=== PATIENT | female | born 1945 | race Caucasian/White ===

== ENCOUNTER 2018-04-13 23:26 | Emergency (ER) | payer OTHER ==
[~2018-04-13] VITALS: Ht 157.4 cm; Wt 77.1 kg
--- NOTE | ~2018-04-13 | EKG ---
[place], [place] ELECTROCARDIOGRAM REPORT NAME: CHERIE CHAPMAN UNIT #: [id number] ROOM: DOCTOR: EPIPHBELINDA DRAFT REPORT BIRTHDATE: [birth year] [facility] Test Date: 2018-04-14 Test Time: 00:02:37 Pat Name: CHERIE CHAPMAN Department: Room: Gender: F Manager Education: [place] : 1945 Requested By: COOKIE DICKINSON PA-C Order Number: [id number] Reading MD: Henry Story MD Measurements Intervals [place] Rate: 66 P: [place]: QRS: 42 QRSD: 85 T: 65 QT: 419 QTc: 439 Interpretive Statements Sinus rhythm Low voltage, precordial leads Nonspecific T abnormalities, anterior leads Electronically Signed On 04-14-2018 14:25:10 PST by Henry Story MD CM:EKGRPT:ELECTROCARDIOGRAM REPORT [id number] COOKIE DICKINSON PA-C EPIPHANY DRAFT REPORT COOKIE DICKINSON PA-C
[~2018-04-13 23:26] MED LIST: AUGMENTIN 875 M1 TAB PO; CEFUROXIME AXE250 MG PO; CIPRO250 MG PO; CLARITIN10 MG PO; CRESTOR20 M1 PO; CRESTOR20 MG PO; LISINOPRIL20 MG PO; METOPROLOL SUCC50 M1 PO; MOTRIN800 MG PO; PYRIDIUM200 MG PO; SIMVASTATIN40 MG PO; ULTRAM50 MG PO; ZANTAC 150150 MG PO; ZESTRIL,PRINIVIL5 MG PO
[2018-04-13] MEDS ORDERED: OMEPRAZOLE40 MG PO (23:41)
[2018-04-14 00:07] LABS: BASO % 0.7 % (0.0-1.0); EOS # 0.1 10*3/uL (0.0-0.4); EOS % 1.1 % (1.0-4.0); HEMATOCRIT 35.5 % (37.0-47.0); HEMOGLOBIN 12.2 g/dl (12.0-16.0); LYMPH # 1.9 10*3/uL (1.3-4.4); MEAN CELL VOLUME 92.4 fl (81.0-99.0); MEAN CORPUSCULAR HGB 31.8 pg (27.0-31.0); MEAN CORPUSCULAR HGB CONC 34.4 g/dl (33.0-37.0); MEAN PLATELET VOLUME 9.3 fl (9.6-12.3); MONO # 0.4 10*3/uL (0.1-1.0); MONO % 7.5 % (3.0-9.0); NEUT % 55.3 % (47.0-73.0); PLATELET COUNT AUTOMATED 267 10*3/uL (130-400); RED BLOOD COUNT 3.84 10*6/uL (4.10-5.10); RED CELL DISTRI WIDTH 12.1 % (0-14.5); WHITE BLOOD COUNT 5.3 10*3/uL (4.8-10.8)
[2018-04-14 00:09] LABS: BILIRUBIN NEGATIVE (NEGATIVE); BLOOD 2+ (NEGATIVE); CLARITY SL CLOUDY (CLEAR); COLOR YELLOW (YELLOW); GLUCOSE NEGATIVE (NEGATIVE); KETONE NEGATIVE (NEGATIVE); LEUKO ESTERASE NEGATIVE (NEGATIVE); NITRITE NEGATIVE (NEGATIVE); PH 5.5 (5.0-9.0); SPECIFIC GRAVITY 1.025 (1.005-1.030); UROBILINOGEN 0.2 E.U./dl (0.2-1.0)
[2018-04-14 00:15] LABS: INTERNATIONAL NORM RATIO 0.9 (2.0-3.5)
[2018-04-14 00:21] LABS: BACTERIA 4+
[2018-04-14 00:25] LABS: ALBUMIN 3.4 gm/dl (3.1-4.5); ALKALINE PHOSPHATASE 111 U/L (45-117); BUN 15 mg/dl (7-24); CHLORIDE 104 mmol/L (98-107); CREATININE 1.25 mg/dL (0.55-1.02); POTASSIUM 3.5 mmol/L (3.5-5.1); SGOT/AST 31 IU/L (3-35); SGPT/ALT 29 U/L (12-78); SODIUM 137 mmol/L (136-145); TOTAL PROTEIN 6.5 gm/dL (6.4-8.2); TROPONIN I < 0.015 ng/ml (<0.045)
== END 2018-04-14 01:38 | disposition home or self-care (01) ==
LOC: ED 23:26
PROVIDERS: Physician Assistant
DX: I10 Essential (primary) hypertension (principal); Z91.041 Radiographic dye allergy status; Z79.899 Other long term (current) drug therapy; Z90.710 Acquired absence of both cervix and uterus

== ENCOUNTER → 2020-03-24 | Outpatient (CLI) | payer MEDICARE ==
[~2020-03-24] MED LIST changes: +OMEPRAZOLE40 MG PO
== END | disposition home or self-care (01) ==
LOC: CARD 12:40
PROVIDERS: ATTEND Internal Medicine Cardiovascular Disease
DX: R06.00 Dyspnea, unspecified (principal)

== ENCOUNTER → 2020-09-20 | Outpatient (CLI) | payer MEDICARE | END | disposition home or self-care (01) | LOC: CT 13:42 | PROVIDERS: ATTEND Family Medicine | DX: M27.8 Other specified diseases of jaws (principal); K11.8 Other diseases of salivary glands ==

== ENCOUNTER 2021-10-06 07:02 | Inpatient (IN) | payer MEDICARE ==
[2021-10-06] VITALS (13 sets, daily range): BP systolic 132–195; BP diastolic 53–90
[~2021-10-06] VITALS: Ht 157.5 cm; Wt 62.4 kg
[2021-10-06 07:36] LABS: BASO % 0.6 % (0.0-1.0); EOS % 0.6 % (1.0-4.0); HEMATOCRIT 40.7 % (37.0-47.0); LYMPH # 1.2 10*3/uL (1.3-4.4); LYMPH % 24.1 % (27.0-41.0); MEAN CELL VOLUME 91.1 fl (81.0-99.0); MEAN CORPUSCULAR HGB 31.3 pg (27.0-31.0); MEAN CORPUSCULAR HGB CONC 34.4 g/dl (33.0-37.0); MONO # 0.3 10*3/uL (0.1-1.0); MONO % 5.9 % (3.0-9.0); NEUT # 3.4 10*3/uL (2.3-7.9); NEUT % 68.6 % (47.0-73.0); PLATELET COUNT AUTOMATED 265 10*3/uL (130-400); RED BLOOD COUNT 4.47 10*6/uL (4.10-5.10); RED CELL DISTRI WIDTH 11.9 % (0-14.5); WHITE BLOOD COUNT 4.9 10*3/uL (4.8-10.8)
[2021-10-06 07:47] LABS: ACT PARTIAL THROMBO TIME 27.1 SECONDS (20.0-32.1); INTERNATIONAL NORM RATIO 0.9 (2.0-3.5)
[2021-10-06 07:54] LABS: ALKALINE PHOSPHATASE 114 U/L (45-117); BUN 12 mg/dl (7-24); CHLORIDE 103 mmol/L (98-107); CREATININE 0.95 mg/dL (0.55-1.02); LIPASE 78 U/L (73-393); SGOT/AST 21 IU/L (3-35); SGPT/ALT 20 U/L (12-78); SODIUM 137 mmol/L (136-145)
[2021-10-06] MEDS ORDERED: HYDRALAZINE10 MG PO (11:41)
[2021-10-06] MEDS ORDERED: HYDROCHLOROTH12.5 M2 PO (11:51)
[2021-10-07] VITALS: BP 143/61
[2021-10-07 08:00] VITALS: BP 129/64
[2021-10-07 12:00] VITALS: BP 130/58
[2021-10-07] MEDS ORDERED: ASPIRIN ADULT L81 M2 PO (14:01)
== END 2021-10-07 14:25 | disposition home or self-care (01) | DRG 305 ==
LOC: ED 07:02 → 4E 10:37 → EDHOLD 10:37 → 4E 14:38
PROVIDERS: Emergency Medicine; ADMIT Internal Medicine; ATTEND Internal Medicine
DX: I16.1 Hypertensive emergency (principal); E78.2 Mixed hyperlipidemia; E11.9 Type 2 diabetes mellitus without complications; I07.1 Rheumatic tricuspid insufficiency; Z91.041 Radiographic dye allergy status; Z79.899 Other long term (current) drug therapy; Z90.710 Acquired absence of both cervix and uterus; Z91.14 Patient's other noncompliance with medication regimen

== ENCOUNTER → 2021-11-10 | Outpatient (CLI) | payer MEDICARE ==
[~2021-11-10] MED LIST changes: +ASPIRIN ADULT L81 M2 PO; +HYDRALAZINE10 MG PO; +HYDROCHLOROTH12.5 M2 PO
[2021-11-10 12:53] LABS: ALKALINE PHOSPHATASE 91 U/L (45-117); BUN 13 mg/dl (7-24); CHLORIDE 104 mmol/L (98-107); CHOLESTEROL 172 mg/dL (<200); CPK 33 U/L (26-192); CREATININE 0.87 mg/dL (0.55-1.02); LDL CHOLESTEROL 83 mg/dL (9-159); POTASSIUM 4.2 mmol/L (3.5-5.1); SGOT/AST 20 IU/L (3-35); SGPT/ALT 18 U/L (12-78); SODIUM 137 mmol/L (136-145); TOTAL PROTEIN 6.7 gm/dL (6.4-8.2); TRIGLYCERIDES 161 mg/dl (<150)
== END | disposition home or self-care (01) ==
LOC: LAB 11:51
PROVIDERS: ATTEND Family Medicine
DX: I10 Essential (primary) hypertension (principal); E74.9 Disorder of carbohydrate metabolism, unspecified; E78.00 Pure hypercholesterolemia, unspecified; E55.9 Vitamin D deficiency, unspecified; Z79.899 Other long term (current) drug therapy

== ENCOUNTER → 2022-02-22 | Outpatient (CLI) | payer MEDICARE ==
[2022-02-22 13:29] LABS: MEAN CELL VOLUME 93.5 fl (81.0-99.0); MEAN CORPUSCULAR HGB 31.6 pg (27.0-31.0); MEAN CORPUSCULAR HGB CONC 33.8 g/dl (33.0-37.0); MEAN PLATELET VOLUME 9.1 fl (9.6-12.3); RED BLOOD COUNT 4.49 10*6/uL (4.10-5.10); RED CELL DISTRI WIDTH 11.7 % (0-14.5); WHITE BLOOD COUNT 3.9 10*3/uL (4.8-10.8)
[2022-02-22 14:11] LABS: ALKALINE PHOSPHATASE 107 U/L (45-117); BUN 12 mg/dl (7-24); CHLORIDE 107 mmol/L (98-107); CHOLESTEROL 290 mg/dL (<200); CREATININE 0.89 mg/dL (0.55-1.02); LDL CHOLESTEROL 202 mg/dL (9-159); POTASSIUM 4.6 mmol/L (3.5-5.1); SGOT/AST 16 IU/L (3-35); SGPT/ALT 18 U/L (12-78); SODIUM 139 mmol/L (136-145); TOTAL PROTEIN 6.6 gm/dL (6.4-8.2); TRIGLYCERIDES 129 mg/dl (<150)
== END ==
LOC: LAB 13:12
PROVIDERS: ATTEND Family Medicine
DX: I10 Essential (primary) hypertension (principal); E11.9 Type 2 diabetes mellitus without complications; K21.9 Gastro-esophageal reflux disease without esophagitis

== ENCOUNTER → 2022-08-14 | Outpatient (CLI) | payer MEDICARE ==
[2022-08-14 12:49] LABS: HEMATOCRIT 42.2 % (37.0-47.0); MEAN CELL VOLUME 94.4 fl (81.0-99.0); MEAN CORPUSCULAR HGB 30.6 pg (27.0-31.0); MEAN CORPUSCULAR HGB CONC 32.5 g/dl (33.0-37.0); MEAN PLATELET VOLUME 9.3 fl (9.6-12.3); RED BLOOD COUNT 4.47 10*6/uL (4.10-5.10); RED CELL DISTRI WIDTH 11.9 % (0-14.5)
[2022-08-14 13:07] LABS: ALKALINE PHOSPHATASE 77 U/L (46-116); BUN 11 mg/dl (9-23); CHLORIDE 103 mmol/L (98-107); CHOLESTEROL 162 mg/dL (<200); LDL CHOLESTEROL 75 mg/dL (9-159); POTASSIUM 4.1 mmol/L (3.4-5.1); SGPT/ALT 12 U/L (10-49); TOTAL PROTEIN 6.5 gm/dL (6.0-8.0); TRIGLYCERIDES 175 mg/dl (<150)
[2022-08-14 13:36] LABS: VITAMIN D, 25-HYDROXY 22.4 ng/mL (30-100)
== END | disposition home or self-care (01) ==
LOC: LAB 11:40
PROVIDERS: ATTEND Family Medicine
DX: I10 Essential (primary) hypertension (principal); E11.9 Type 2 diabetes mellitus without complications; E78.00 Pure hypercholesterolemia, unspecified; E55.9 Vitamin D deficiency, unspecified; R53.83 Other fatigue

== ENCOUNTER → 2022-08-21 | Outpatient (CLI) | payer MEDICARE | END | disposition home or self-care (01) | LOC: LAB 10:16 | PROVIDERS: ATTEND Family Medicine | DX: R10.9 Unspecified abdominal pain (principal) ==

== ENCOUNTER → 2022-08-22 | Outpatient (CLI) | payer MEDICARE | END | disposition home or self-care (01) | LOC: CT 02:23 | PROVIDERS: ATTEND Family Medicine | DX: N20.0 Calculus of kidney (principal); K57.32 Diverticulitis of large intestine without perforation or abscess without bleeding; K42.9 Umbilical hernia without obstruction or gangrene; Z90.49 Acquired absence of other specified parts of digestive tract ==

== ENCOUNTER → 2023-03-19 | Outpatient (CLI) | payer MEDICARE ==
[2023-03-19 14:18] LABS: MEAN CELL VOLUME 93.2 fl (81.0-99.0); MEAN CORPUSCULAR HGB 31.4 pg (27.0-31.0); MEAN CORPUSCULAR HGB CONC 33.7 g/dl (33.0-37.0); MEAN PLATELET VOLUME 9.1 fl (9.6-12.3); RED BLOOD COUNT 4.4 10*6/uL (4.10-5.10); RED CELL DISTRI WIDTH 11.9 % (0-14.5); WHITE BLOOD COUNT 4.4 10*3/uL (4.8-10.8)
[2023-03-19 14:46] LABS: ALKALINE PHOSPHATASE 83 U/L (46-116); BUN 9 mg/dl (9-23); CHLORIDE 105 mmol/L (98-107); CHOLESTEROL 238 mg/dL (<200); CPK 35 U/L (34-171); LDL CHOLESTEROL 152 mg/dL (9-159); POTASSIUM 3.8 mmol/L (3.4-5.1); TOTAL PROTEIN 6.5 gm/dL (6.0-8.0); TRIGLYCERIDES 145 mg/dl (<150)
[2023-03-19 14:49] LABS: VITAMIN D, 25-HYDROXY 15.3 ng/mL (30-100)
[2023-03-19 14:55] LABS: SGPT/ALT < 7 U/L (5-49)
== END | disposition home or self-care (01) ==
LOC: LAB 13:33
PROVIDERS: ATTEND Family Medicine
DX: E11.9 Type 2 diabetes mellitus without complications (principal); E78.00 Pure hypercholesterolemia, unspecified; I10 Essential (primary) hypertension; E55.9 Vitamin D deficiency, unspecified; D51.9 Vitamin B12 deficiency anemia, unspecified

== ENCOUNTER → 2023-06-24 | Outpatient (CLI) | payer MEDICARE ==
[2023-06-24 13:39] LABS: HEMATOCRIT 41.2 % (37.0-47.0); MEAN CELL VOLUME 94.9 fl (81.0-99.0); MEAN CORPUSCULAR HGB 31.1 pg (27.0-31.0); MEAN CORPUSCULAR HGB CONC 32.8 g/dl (33.0-37.0); MEAN PLATELET VOLUME 9.1 fl (9.6-12.3); RED BLOOD COUNT 4.34 10*6/uL (4.10-5.10); RED CELL DISTRI WIDTH 11.6 % (0-14.5); WHITE BLOOD COUNT 4.3 10*3/uL (4.8-10.8)
[2023-06-24 14:00] LABS: ALKALINE PHOSPHATASE 83 U/L (46-116); BUN 10 mg/dl (9-23); CHLORIDE 104 mmol/L (98-107); CHOLESTEROL 166 mg/dL (<200); CPK 34 U/L (34-171); LDL CHOLESTEROL 88 mg/dL (9-159); POTASSIUM 4.2 mmol/L (3.4-5.1); SGPT/ALT 9 U/L (5-49); TOTAL PROTEIN 6.5 gm/dL (6.0-8.0); TRIGLYCERIDES 102 mg/dl (<150)
== END | disposition home or self-care (01) ==
LOC: LAB 12:53
PROVIDERS: ATTEND Family Medicine
DX: E55.9 Vitamin D deficiency, unspecified (principal); E78.00 Pure hypercholesterolemia, unspecified

== ENCOUNTER → 2023-10-31 | Outpatient (CLI) | payer MEDICARE ==
[2023-10-31 10:45] LABS: HEMATOCRIT 41.1 % (37.0-47.0); MEAN CELL VOLUME 93.6 fl (81.0-99.0); MEAN CORPUSCULAR HGB 31.2 pg (27.0-31.0); MEAN CORPUSCULAR HGB CONC 33.3 g/dl (33.0-37.0); MEAN PLATELET VOLUME 9.1 fl (9.6-12.3); RED BLOOD COUNT 4.39 10*6/uL (4.10-5.10); RED CELL DISTRI WIDTH 11.8 % (0-14.5)
[2023-10-31 11:31] LABS: ALKALINE PHOSPHATASE 95 U/L (46-116); BUN 10 mg/dl (9-23); CHLORIDE 101 mmol/L (98-107); CHOLESTEROL 158 mg/dL (<200); CPK 31 U/L (34-171); LDL CHOLESTEROL 79 mg/dL (9-159); POTASSIUM 3.6 mmol/L (3.4-5.1); SGPT/ALT 10 U/L (5-49); TOTAL PROTEIN 6.7 gm/dL (6.0-8.0); TRIGLYCERIDES 101 mg/dl (<150)
[2023-10-31 11:34] LABS: VITAMIN D, 25-HYDROXY 16.3 ng/mL (30-100)
== END | disposition home or self-care (01) ==
LOC: LAB 10:09
PROVIDERS: ATTEND Family Medicine
DX: I10 Essential (primary) hypertension (principal); F41.1 Generalized anxiety disorder; R53.83 Other fatigue; E55.9 Vitamin D deficiency, unspecified; E74.9 Disorder of carbohydrate metabolism, unspecified; E78.00 Pure hypercholesterolemia, unspecified; K21.9 Gastro-esophageal reflux disease without esophagitis

== ENCOUNTER → 2024-02-21 | Outpatient (CLI) | payer MEDICARE ==
[2024-02-21 12:08] LABS: HEMATOCRIT 40.4 % (37.0-47.0); MEAN CELL VOLUME 92.2 fl (81.0-99.0); MEAN CORPUSCULAR HGB CONC 34.7 g/dl (33.0-37.0); MEAN PLATELET VOLUME 9.1 fl (9.6-12.3); RED BLOOD COUNT 4.38 10*6/uL (4.10-5.10); RED CELL DISTRI WIDTH 12.1 % (0-14.5); WHITE BLOOD COUNT 5.8 10*3/uL (4.8-10.8)
[2024-02-21 12:41] LABS: ALKALINE PHOSPHATASE 87 U/L (46-116); BUN 13 mg/dl (9-23); CHLORIDE 101 mmol/L (98-107); CHOLESTEROL 184 mg/dL (<200); LDL CHOLESTEROL 97 mg/dL (9-159); POTASSIUM 4.2 mmol/L (3.4-5.1); SGPT/ALT 16 U/L (5-49); TOTAL PROTEIN 6.6 gm/dL (6.0-8.0); TRIGLYCERIDES 115 mg/dl (<150)
== END | disposition home or self-care (01) ==
LOC: LAB 11:13
PROVIDERS: ATTEND Family Medicine
DX: I10 Essential (primary) hypertension (principal); G47.00 Insomnia, unspecified; N90.5 Atrophy of vulva; E55.9 Vitamin D deficiency, unspecified

== ENCOUNTER → 2024-06-15 | Outpatient (CLI) | payer MEDICARE ==
[2024-06-15 12:43] LABS: HEMATOCRIT 41.6 % (37.0-47.0); MEAN CELL VOLUME 91.8 fl (81.0-99.0); MEAN CORPUSCULAR HGB 31.1 pg (27.0-31.0); MEAN CORPUSCULAR HGB CONC 33.9 g/dl (33.0-37.0); MEAN PLATELET VOLUME 9.2 fl (9.6-12.3); RED BLOOD COUNT 4.53 10*6/uL (4.10-5.10); RED CELL DISTRI WIDTH 11.9 % (0-14.5); WHITE BLOOD COUNT 4.3 10*3/uL (4.8-10.8)
[2024-06-15 13:06] LABS: ALKALINE PHOSPHATASE 90 U/L (46-116); BUN 16 mg/dl (9-23); CHLORIDE 102 mmol/L (98-107); CHOLESTEROL 179 mg/dL (<200); CPK 37 U/L (34-171); LDL CHOLESTEROL 98 mg/dL (9-159); POTASSIUM 4.2 mmol/L (3.4-5.1); SGPT/ALT 12 U/L (5-49); TOTAL PROTEIN 6.5 gm/dL (6.0-8.0); TRIGLYCERIDES 89 mg/dl (<150)
[2024-06-15 13:33] LABS: VITAMIN D, 25-HYDROXY 12.3 ng/mL (30-100)
== END | disposition home or self-care (01) ==
LOC: LAB 12:10
PROVIDERS: ATTEND Family Medicine
DX: K21.9 Gastro-esophageal reflux disease without esophagitis (principal); E78.00 Pure hypercholesterolemia, unspecified; E11.9 Type 2 diabetes mellitus without complications; E55.9 Vitamin D deficiency, unspecified; G47.00 Insomnia, unspecified

== ENCOUNTER → 2024-10-08 | Outpatient (CLI) | payer MEDICARE ==
[2024-10-08 13:04] LABS: HEMATOCRIT 43.3 % (37.0-47.0); MEAN CELL VOLUME 93.3 fl (81.0-99.0); MEAN CORPUSCULAR HGB 31.3 pg (27.0-31.0); MEAN CORPUSCULAR HGB CONC 33.5 g/dl (33.0-37.0); MEAN PLATELET VOLUME 8.7 fl (9.6-12.3); RED BLOOD COUNT 4.64 10*6/uL (4.10-5.10); RED CELL DISTRI WIDTH 11.7 % (0-14.5); WHITE BLOOD COUNT 4.1 10*3/uL (4.8-10.8)
[2024-10-08 13:50] LABS: ALKALINE PHOSPHATASE 80 U/L (46-116); BUN 13 mg/dl (9-23); CHLORIDE 102 mmol/L (98-107); CHOLESTEROL 278 mg/dL (<200); CPK 41 U/L (34-171); LDL CHOLESTEROL 192 mg/dL (9-159); POTASSIUM 4.3 mmol/L (3.4-5.1); SGPT/ALT 11 U/L (5-49); TOTAL PROTEIN 6.9 gm/dL (6.0-8.0); TRIGLYCERIDES 128 mg/dl (<150)
[2024-10-08 13:54] LABS: VITAMIN D, 25-HYDROXY 14.5 ng/mL (30-100)
== END | disposition home or self-care (01) ==
LOC: LAB 12:42
PROVIDERS: ATTEND Family Medicine
DX: I10 Essential (primary) hypertension (principal); E78.00 Pure hypercholesterolemia, unspecified; E53.9 Vitamin B deficiency, unspecified; E55.9 Vitamin D deficiency, unspecified; K21.9 Gastro-esophageal reflux disease without esophagitis; Z79.899 Other long term (current) drug therapy

== ENCOUNTER → 2024-11-11 | Outpatient (CLI) | payer MEDICARE ==
[2024-11-11 15:53] LABS: ALKALINE PHOSPHATASE 81 U/L (46-116); BUN 15 mg/dl (9-23); CHLORIDE 101 mmol/L (98-107); CHOLESTEROL 161 mg/dL (<200); CPK 97 U/L (34-171); LDL CHOLESTEROL 89 mg/dL (9-159); POTASSIUM 4.2 mmol/L (3.4-5.1); SGPT/ALT 12 U/L (5-49); TOTAL PROTEIN 6.4 gm/dL (6.0-8.0); TRIGLYCERIDES 77 mg/dl (<150)
== END | disposition home or self-care (01) ==
LOC: LAB 15:16
PROVIDERS: ATTEND Family Medicine
DX: E78.00 Pure hypercholesterolemia, unspecified (principal)

== ENCOUNTER → 2025-01-14 | Outpatient (CLI) | payer MEDICARE ==
[2025-01-14 11:49] LABS: MEAN CELL VOLUME 94.9 fl (81.0-99.0); MEAN CORPUSCULAR HGB 31.5 pg (27.0-31.0); MEAN PLATELET VOLUME 9.0 fl (9.6-12.3); NUCLEATED RED BLOOD CELL 0.0 % (0.0-0.0); NUCLEATED RED BLOOD CELL 0.0 10*3/uL (0.0-0.0); PLATELET COUNT AUTOMATED 281.0 10*3/uL (130-400); RED CELL DISTRI WIDTH 11.8 % (0-14.5)
[2025-01-14 12:11] LABS: BUN 15 mg/dl (9-23); CPK 56 U/L (34-171); LDL CHOLESTEROL 98 mg/dL (9-159); SGPT/ALT 12 U/L (5-49)
[2025-01-14 12:14] LABS: VITAMIN D, 25-HYDROXY 25.8 ng/mL (30-100)
== END ==
LOC: LAB 11:12
PROVIDERS: ATTEND Family Medicine
DX: I10 Essential (primary) hypertension (principal); E78.00 Pure hypercholesterolemia, unspecified; E55.9 Vitamin D deficiency, unspecified; E74.9 Disorder of carbohydrate metabolism, unspecified; Z79.899 Other long term (current) drug therapy

== ENCOUNTER → 2025-02-17 | Outpatient (CLI) | payer MEDICARE | END | disposition home or self-care (01) | LOC: RAD 09:00 | PROVIDERS: ATTEND Family Medicine | DX: M81.0 Age-related osteoporosis without current pathological fracture (principal); M85.851 Other specified disorders of bone density and structure, right thigh ==

== ENCOUNTER → 2025-04-28 | Outpatient (CLI) | payer MEDICARE ==
[2025-04-28 12:25] LABS: MEAN CELL VOLUME 93.7 fl (81.0-99.0); MEAN CORPUSCULAR HGB 31.1 pg (27.0-31.0); MEAN PLATELET VOLUME 9.2 fl (9.6-12.3); NUCLEATED RED BLOOD CELL 0.0 % (0.0-0.0); NUCLEATED RED BLOOD CELL 0.0 10*3/uL (0.0-0.0); PLATELET COUNT AUTOMATED 282.0 10*3/uL (130-400); RED CELL DISTRI WIDTH 12.1 % (0-14.5)
[2025-04-28 13:12] LABS: BUN 13 mg/dl (9-23); LDL CHOLESTEROL 77 mg/dL (9-159); SGPT/ALT 10 U/L (5-49)
== END | disposition home or self-care (01) ==
LOC: LAB 11:18
PROVIDERS: ATTEND Family Medicine
DX: I10 Essential (primary) hypertension (principal); E78.00 Pure hypercholesterolemia, unspecified; E74.9 Disorder of carbohydrate metabolism, unspecified; G47.00 Insomnia, unspecified; D72.819 Decreased white blood cell count, unspecified